=== PATIENT | male | born 1955 | race Caucasian/White ===

== ENCOUNTER 2018-11-22 07:27 | Outpatient (CLI) | payer BC ==
--- NOTE | 2018-11-22 08:07 | ULT ---
EXAM: US Gallbladder RUQ CLINICAL HISTORY: Abdominal pain. Abnormal lab values.. COMPARISON: None. FINDINGS: Examination is limited due to bowel gas and body habitus Pancreas: Poorly evaluated due to overlying bowel gas Liver:Diffusely heterogeneous. Subsequent limited evaluation for hepatic masses and intrahepatic bili ani dilatation. Right hepatic lobe measures 18.4 cm. Gallbladder: Limited in evaluation. No evidence of cholelithiasis, gallbladder wall thickening or per icholecystic fluid. Alonso's sign:Not commented upon Bile ducts: Poorly defined. Right kidney: No hydronephrosis. Right kidney measuring 10.7 x 6.6 x 6.1 cm in length. Targeted sonographic imaging of a palpable focus x5 years demonstrates a well-circumscribed soft tiss ue echotexture without vascular flow measuring 5.7 x 3.1 x 8.8 cm. IMPRESSION: 1. Increased echogenicity of the liver which may be due to hepatic steatosis versus hepatocellular d isease. There is concern for hepatic masses, dedicated abdomen CT or MRI can be performed. 2. Palpable focus in the right abdomen without vascular flow. Better interrogation with CT is recomm ended. 3. Hepatomegaly.
== END 2018-11-22 07:28 | disposition home or self-care (01) ==
LOC: ULT 07:27
PROVIDERS: ATTEND Physician Assistant
DX: R94.5 Abnormal results of liver function studies (principal); R16.0 Hepatomegaly, not elsewhere classified; R93.2 Abnormal findings on diagnostic imaging of liver and biliary tract
CPT/HCPCS: 76705